=== PATIENT | female | born 1970 | race Caucasian/White ===

== ENCOUNTER 2019-06-03 11:03 | Emergency (ER) | payer BC, SELFPAY ==
--- NOTE | ~2019-06-03 | XR_ITS ---
XR chest 2V DATE: 06/03/2019 12:35 INDICATION: Shortness of breath. Asthma. TECHNIQUE: 2 views COMPARISON: None FINDINGS: Normal heart size. No hilar or mediastinal enlargement. No pulmonary vascular congestion. N o pneumothorax. No pleural effusion is evident. There is mild discoid atelectasis or scarring at the left lung base. IMPRESSION: Mild discoid atelectasis or scarring at the left lung base Reviewed, dictated and finalized at location A. [employer]
[2019-06-03 11:17] VITALS: BP 121/71; PULSE 93; RESP 18; TEMP 36.9; O2SAT 100
--- NOTE | 2019-06-03 12:26 | ED.URI ---
HPI - URI/Sore Throat General Chief Complaint: Upper Respiratory Infection Stated Complaint: Asthma Time Seen by Provider: 06/03/19 12:26 Source: patient Mode of arrival: ambulatory Limitations: no limitations History of Present Illness HPI Narrative: Lucero Zayas is a 49-year-old female with a PMH of asthma who comes to urgent care for evaluation of increasing asthmatic symptoms along with shortness of breath when climbing stairs or doing normal household activities. She states that started on and she is to the point where she just sat down between activities to catch her breath. She had called her primary care physician and she is using her nebulizer 3 times a day in addition to her Advair and rescue inhaler. When she is not ill she does not use her nebulizer Related Data Home Medications Medication Instructions Recorded Confirmed albuterol sulfate INHALATION 06/03/19 fluticasone propion-salmeterol INHALATION 06/03/19 [Advair Diskus] montelukast mg 06/03/19 oseltamivir mg 06/03/19 Allergies Allergy/AdvReac Type Severity Reaction Status Date / Time No Known Allergies Allergy Unverified 12/20/16 16:39 Review of Systems Review of Systems: Narrative: CONSTITUTIONAL: Denies fever, chills, sweats. EYES: Denies visual changes, redness, discharge. ENT: Denies rhinorrhea, congestion, sore throat, otalgia. CARDIOVASCULAR: Denies chest pain, palpitations, edema. RESPIRATORY: Has dyspnea, wheezing, cough GASTROINTESTINAL: Denies abdominal pain, nausea, vomiting, diarrhea. GENITOURINARY: Denies dysuria, hematuria, abnormal discharge SKIN: Denies rash or itching. MUSCULOSKELETAL: Denies acute back pain, joint pain, or myalgia. NEUROLOGIC: Denies numbness, or focal weakness. PSYCHIATRIC: Denies anxiety or depression. PMFSH Family History Family History (Updated 06/03/19 @ 12:29 by Karen Mensah CNP) Other Asthma Social History Social History (Updated 06/03/19 @ 12:28 by Karen Mensah CNP) Living arrangements: with family Occupation/Education: occupation Exam Narrative: Exam Narrative: GENERAL: This is a well-nourished, well-developed patient, in mild t distress. HEAD: normocephalic, atraumatic. EYES: Sclera clear/white. Vision is grossly intact. EARS: External ears normal, auditory canals clear and without drainage, TMs normal without perforation. Hearing grossly intact. NOSE: External nose normal with no obvious nasal discharge, nares without redness, no rhinorrhea. THROAT: Mucous membranes moist, posterior pharynx erythema, NECK: Neck supple, non-tender without lymphadenopathy, masses or thyromegaly. CARDIOVASCULAR: Regular rate and rhythm without murmurs, gallops, or rubs. RESPIRATORY diminished auscultation. Breath sounds equal bilaterally. No wheezes, rales, or rhonchi. GASTROINTESTINAL: Abdomen soft, non-tender, nondistended. SKIN: warm, intact with no suspicious lesions or rash, good texture and turgor. NEURO: awake, alert, and oriented to person, place and time. There were no obvious focal neurologic abnormalities. Steady gait EXTREMITIES: Normal range of motion. No edema. BACK: Nontender without deformity or crepitance. . Course Course Emergency Course: Chest x-ray negative for pneumonia but has atelectasis on left base lung -patient to use incentive spirometer, also started on prednisone 40 mg daily x5 days Vital Signs Vital signs: Vital Signs Temperature 98.4 F 06/03/19 11:17 Pulse Rate 93 06/03/19 11:17 Respiratory Rate 18 06/03/19 11:17 Blood Pressure 121/71 06/03/19 11:17 Pulse Oximetry 100 06/03/19 11:17 Temperature 98.4 F 06/03/19 11:17 Pulse Rate 93 06/03/19 11:17 Respiratory Rate 18 06/03/19 11:17 Blood Pressure 121/71 06/03/19 11:17 Pulse Oximetry 100 06/03/19 11:17 MDM - URI/Sore Throat Differential Diagnosis Differential diagnosis: Likely upper respiratory infection, viral infection and other (Asthma flare) D
== END 2019-06-03 13:12 | disposition home or self-care (01) ==
PROVIDERS: Emergency Provider Nurse Practitioner
DX: J45.41 Moderate persistent asthma with (acute) exacerbation (principal); J06.9 Acute upper respiratory infection, unspecified
CPT/HCPCS: 71046; 99213; G0463

== ENCOUNTER 2021-09-03 03:47 | Emergency (ER) | payer BC, SELFPAY ==
[2021-09-03] VITALS (25 sets, daily range): BP systolic 111–144; BP diastolic 74–98; PULSE 77–105; RESP 13–23; TEMP 36.4; O2SAT 94–100
--- NOTE | ~2021-09-03 | CT_ITS ---
EXAMINATION: CT brain wo con INDICATION: Headache, behavioral change COMPARISON: None TECHNIQUE: Standard unenhanced head CT. The dose-length product (DLP) was 605.33 mGy-cm. The mA was a djusted according to patient size. Iterative reconstruction technique was employed. FINDINGS: There is no intracranial hemorrhage, acute infarction, or abnormal mass lesion. The ventric les are normal. There is no abnormal mass effect or midline shift. The holliday-white matter differentiat ion is normal. The basal cisterns are patent. The orbits are normal. There is chronic pansinusitis. IMPRESSION: 1. No acute intracranial abnormality. 2. Chronic pansinusitis. Reviewed, dictated and finalized at location A.
--- NOTE | 2021-09-03 04:09 | PC.NURSE ---
Pt c/o of feeling like blood is running down the back of her head. Pt denies numbness, tingling, vision changes, or gait changes. Pt is A & O x4. Pt denies nausea or vomiting. States she was seen at [facility] on for chest pain.
--- NOTE | 2021-09-03 04:31 | ED.GENADULT ---
HPI - General Adult General Chief complaint: Headache Stated complaint: I feel a blood dripping in my brain Time Seen by Provider: 09/03/21 04:00 Source: patient, family and RN notes reviewed History of Present Illness HPI narrative: 51-year-old female presenting to the emergency department for evaluation of a sensation of blood running down her neck and back. Patient states that the symptoms started approximately 5 PM and has persisted. Patient denies any neck or back pain. Patient denies any headache at this time. Patient states she did have a minor headache but states it has since resolved. Patient states that she does feel very anxious at this time. Patient denies any pain or injury. Patient has had this symptom before but states it was not as severe. Family states that at the time the patient was having some anxiety and after the anxiety improved with the dripping sensation also stopped. Patient has been sleeping on the couch more frequently and has had a change in behavior over the last 6 months. Patient has had more frequent episodes of anxiety and has been sleeping on the couch more frequently. Patient has been more restless at night. Patient did have a recent cardiac evaluation at [facility] that was found to be negative. Patient has been using her albuterol treatments more frequently. Patient has had follow-up with a striker out and other than her asthma patient has had a normal work-up per family. Related Data Home Medications Medication Instructions Recorded Confirmed albuterol sulfate INHALATION 06/03/19 fluticasone propion-salmeterol INHALATION 06/03/19 [Advair Diskus] montelukast mg 06/03/19 oseltamivir mg 06/03/19 Allergies Allergy/AdvReac Type Severity Reaction Status Date / Time No Known Allergies Allergy Verified 09/03/21 03:53 Review of Systems Review of Systems: CONSTITUTIONAL: Denies fever, chills, or sweats. EYES: Denies visual changes, redness, or discharge. ENT: Denies rhinorrhea, congestion, sore throat, or otalgia. CARDIOVASCULAR: Denies chest pain, palpitations, or edema. RESPIRATORY: Denies cough or dyspnea. GASTROINTESTINAL: Denies abdominal pain, nausea, vomiting, or diarrhea. GENITOURINARY: Denies dysuria or hematuria. SKIN: Denies rash or itching. MUSCULOSKELETAL: Denies back pain, joint pain, or myalgia. NEUROLOGIC: Denies headache, numbness, or weakness. PSYCHIATRIC: Increased anxiety PMFSH Family History Family History (Updated 06/03/19 @ 12:29 by Karen Mensah CNP) Other Asthma Exam Narrative: APPEARANCE: Well appearing, no pain, no distress, well-nourished. HEAD: normocephalic, atraumatic. EYES: PERRLA/EOMI, conjunctivae clear. NOSE: Normal no drainage EARS:TMS clear with good light reflex. THROAT: Pharynx clear, no exudate. NECK: Supple. No adenopathy, no masses. RESPIRATORY: Airway patent, respirations nonlabored. Clear to auscultation bilaterally, no rales, rhonchi, wheezing. CARDIOVASCULAR: Regular rate and rhythm without murmurs rubs or gallops. ABDOMINAL: Soft, nontender, nondistended, normal bowel sounds MUSCULOSKELETAL: Moves all extremities. Strength/ROM intact, No edema, No calf tenderness. NEURO: Alert. Cranial nerves II through XII intact. Good gait. Good coordination SKIN: Warm, dry. Normal Color PSYCHIATRIC: Normal affect/mood. Course Course Emergency Course: No neurologic abnormality. Head CT was negative for any acute abnormality. Labs are well-appearing. I discussed with the patient and family about the importance of seeking treatment for her potential depression and anxiety. All questions and concerns were addressed. Vital Signs Vital signs: Vital Signs Temperature 97.5 F L 09/03/21 03:49 Pulse Rate 77 09/03/21 03:49 Respiratory Rate 16 09/03/21 03:49 Blood Pressure 144/98 H 09/03/21 03:49 Pulse Oximetry 100 09/03/21 03:49 Temperature 97.5 F L 09/03/21 03:49 Pulse Rate 81 09/03/21 06:16 Respiratory R
[2021-09-03] MEDS: LORazepam INJ (*CRX) 2 MG/ML VIAL 1 MG IV PUSH (04:43)
[2021-09-03 04:52] LABS: Basophils Percent Auto 0.5 % (0.2-1.2); Eosinophils Absolute Auto 0.1 K/mm3 (0-0.3); Eosinophils Percent Auto 0.9 % (0-4.4); Hematocrit 41.2 % (37.0-47.0); Hemoglobin 13.4 g/dL (12.0-15.0); Immature Granulocyte Absolute 0.02 K/mm3 (0.00-0.031); Immature Granulocyte Percent A 0.3 % (0-0.5); Lymphocytes Absolute Auto 1.26 K/mm3 (0.9-3.2); Lymphocytes Percent Auto 16.5 % (18.3-44.2); Mean Corpuscular HGB Conc 32.5 g/dl (32-36); Mean Corpuscular Hemoglobin 31.9 pg (26-34); Mean Corpuscular Volume 98.1 fl (80-100); Mean Platelet Volume 8.4 fl (7.4-10.4); Monocytes Absolute Auto 0.7 K/mm3 (0.1-0.6); Monocytes Percent Auto 9.3 % (2.6-8.5); Neutrophils Absolute Auto 5.5 K/mm3 (1.3-6.7); Neutrophils Percent Auto 72.5 % (45.5-73.1); Platelet Count Result 391 k/mm3 (150-375); Red Cell Distribution Width 11.6 % (11.5-14.5); White Blood Count 7.6 K/mm3 (4.5-10.0)
[2021-09-03 05:04] LABS: Alanine Aminotransferase 24 U/L (6-35); Albumin Level 4.5 g/dL (3.5-5.1); Alkaline Phosphatase 78 U/L (38-126); Anion Gap 8 mmol/L (8-16); Aspartate Amino Transferase 32 U/L (14-36); Bilirubin,Total 1.1 mg/dL (0.2-1.3); Blood Urea Nitrogen 11 mg/dL (7-17); Carbon Dioxide 24 mmol/L (22-30); Chloride 99 mmol/L (98-107); Estimated CRCL calculation 94 ml/min; Estimated Glomerular Filt Rate > 60; Glucose 142 mg/dL (65-110); Potassium 3.9 mmol/L (3.4-5.0); Sodium 131 mmol/L (137-145)
[2021-09-03 05:36] LABS: Appearance Urine Clear (Clear); Bilirubin Urine Negative (Negative); Blood Urine 3+ (Negative); Color Urine Yellow (Yellow); Glucose Urine UA Negative (Negative); Ketones Urine Negative (Negative); Leukocyte Esterase Ur 1+ LEU/UL (Negative); Nitrate Urine Negative (Negative); Protein Urine Negative (Negative); Specific Grav Ur <= 1.005 (1.001-1.035); Urobilinogen Urine 0.2 mg/dL (<2.0)
[2021-09-03 05:40] LABS: Bacteria Urine Trace /hpf; Mucus Urine Rare /lpf; Squamous Epithelial Cell Urine Many /hpf (Few)
[2021-09-03 05:43] LABS: Amphetamine Screen Urine Negative (Negative); Barbiturate Screen Urine Negative (Negative); Benzodiazepines Screen Urine Negative (Negative); Cannabinoid Screen Urine Negative (Negative); Cocaine Screen Urine Negative (Negative); Methadone Screen Urine Negative (Negative); Opiate Screen Urine Negative (Negative); Phencyclidine Screen Urine Negative (Negative)
[2021-09-03 05:51] LABS: Thyroid Stimulating Hormone Reflex 0.382 uIU/mL (0.465-4.68)
[2021-09-03 06:15] LABS: Add Urine Microscopic? YES
[2021-09-03 06:25] LABS: Free T4 Free Thyroxine Reflex 1.21 ng/dL (0.78-2.19)
[2021-09-03 08:00] LABS: Total Triiodothyronine (T3) 1.63 NG/ML (0.97-1.69)
== END 2021-09-03 06:42 | disposition home or self-care (01) ==
PROVIDERS: Emergency Provider Emergency Medicine; PCP Internal Medicine
DX: F41.9 Anxiety disorder, unspecified (principal); R51.9 Headache, unspecified; J32.9 Chronic sinusitis, unspecified
CPT/HCPCS: 36415; 70450; 80053; 80307; 81001; 83735; 84439; 84443; 84480; 85025; 87086; 87088; 96374; 99284; J2060